=== PATIENT | male | born 1945 | race Caucasian/White ===

== ENCOUNTER → 2017-06-06 | Outpatient (CLI) | payer MEDICARE, OTHER ==
--- NOTE | 2017-06-07 10:14 | CT ---
Procedure: CT CHEST WITH IV CONTRAST Exam Date: 06/06/2017 12:00 AM APPLICATION DEFENSE MANAGER Ordering Provider: Vandana Cheung Clinical Indication: FOOD ASPIRATION Comparison: None Technique: Helically acquired axial images were obtained through the chest. Low osmolar IV contrast was given. Coronal and Sagittal reformats were obtained. This exam was performed according to our departmental dose-optimization program which includes automated exposure control, adjustment of the mA and/or kV according to patient size and/or use of iterative reconstruction technique. Findings: There is an approximately 2.6 x 1.9 cm ill-defined pulmonary nodule in the periphery of the right upper lobe. Findings are seen in a background of mild paraseptal and centrilobular emphysema. No pleural effusion or pneumothorax is present. Calcified mediastinal and left hilar lymph nodes are seen, likely a sequelae of remote wedging of metastatic disease. The heart size is normal. Partially imaged upper abdomen demonstrates a small sliding-type hiatal hernia. Gallbladder is surgically absent. Simple cysts are seen arising from the left kidney. Punctate calcifications are seen in the spleen. Visualized osseous structures demonstrate no acute abnormality. Multilevel degenerative changes are seen throughout the spine. Impression: 1. Approximately 2.6 cm somewhat spiculated appearing pulmonary nodule in the right upper lobe is suspicious for bronchogenic carcinoma. Recommend pulmonology consultation. 2. Small sliding-type hiatal hernia. 3. Mild paraseptal and centrilobular emphysema. Electronically signed by: Kylie Monzon MD 06/07/2017 10:13 AM APPLICATION DEFENSE MANAGER
== END | disposition home or self-care (01) ==
LOC: LAB.O 13:04
PROVIDERS: ATTEND Nurse Practitioner Family
DX: T17.928A Food in respiratory tract, part unspecified causing other injury, initial encounter (principal)

== ENCOUNTER → 2017-06-13 | Outpatient (CLI) | payer MEDICARE, OTHER | END | disposition home or self-care (01) | LOC: RESP 10:08 | PROVIDERS: ATTEND Nurse Practitioner Family | DX: R91.1 Solitary pulmonary nodule (principal) ==

== ENCOUNTER 2017-11-13 08:18 | Emergency (ER) | payer MEDICARE, OTHER ==
[2017-11-13 08:35] VITALS: TEMP 97.6
--- NOTE | 2017-11-13 08:42 | ED.PDOC ---
History of Present Illness - General Chief Complaint: Neuro Symptoms/Deficits Stated Complaint: R sided weakness Time Seen by Provider: 11/13/17 08:30 - History of Present Illness Initial Comments: Colton Dodd 72 y/o male stated that he felt weak on his right upper and lower extremity felt numb and has problem with holding his fork on his right hand eating yesterday but did not drop it;denies dysarthria facial weakness, difficulty but feels weak on right side when walking.Has history of right lung CA s/p lung resection and undergoing chemotherapy. No fever. ,no bowel/bladder dysfunction Timing/Duration: 24 hours, decreasing, other Severity: moderate Episode Description: see hpi Improving Factors: nothing Worsening Factors: nothing Associated Symptoms: other - see hpi Allergies/Adverse Reactions: Allergies NO KNOWN ALLERGY Allergy (Verified 11/13/17 08:26) Home Medications: Ambulatory Orders Apixaban [Eliquis] 5 mg PO DAILY 11/13/17 Fluticasone Propionate (Nasal) [Fluticasone Propionate] 50 mcg NA DAILY Folic Acid [Folic Acid] 1 mg PO DAILY 11/13/17 Ibuprofen [Advil] 200 mg PO Q6H 11/13/17 Lisinopril [Lisinopril] 40 mg PO DAILY 11/13/17 Metoprolol Succinate [Toprol Xl] 100 mg PO DAILY 11/13/17 Multiple Vitamins W/ Minerals [Vision Plus] 1 cap PO DAILY 11/13/17 Ondansetron Odt (ER Disp) [Zofran ODT (ER DISP)] 8 mg SL TID PRN 11/13/17 Pantoprazole Sodium 40 mg PO DAILY 11/13/17 Review of Systems - Review of Systems Constitutional: States: no symptoms reported EENTM: States: no symptoms reported Respiratory: States: see HPI Cardiology: States: no symptoms reported Gastrointestinal/Abdominal: States: no symptoms reported Genitourinary: States: no symptoms reported Neurological: States: see HPI Past Medical History (General) - Patient Medical History Hx Stroke: No Hx Cardiac Disorders: - Hx phlebitis-given Eliquis Hx Congestive Heart Failure: No Hx Hypertension: Yes Hx Diabetes: No Hx Gastroesophageal Reflux: Yes Hx Cancer: Yes - lung CA Surgical History: cholecystectomy, other - lung resection right - Vaccination History Hx Influenza Vaccination: Yes - 2016 Hx Pneumococcal Vaccination: Yes - 2017 - Social History Hx Tobacco Use: Yes - Quit 1997 Hx Chewing Tobacco Use: Yes - quit 20 years ago Hx Alcohol Use: No Hx Substance Use: No Hx Physical Abuse: No Hx Emotional Abuse: No - Activities of Daily Living Grooming Ability: Independent Eating (Feeding) Ability: Independent Toileting Ability: Independent Family Medical History - Family History Father Living Status: Cause of : Leukemia Hx Cardiac Disease: Yes - brother Hx Family Cancer: Yes - dad-leukemia;mom-colon Physical Exam - Physical Exam General Appearance: Alert, Comfortable Eye Exam: bilateral normal ENT Exam: normal ENT inspection, hearing grossly normal, pharynx normal Neck: non-tender, full range of motion, supple, normal inspection, trachea midline Respiratory: chest non-tender, lungs clear, normal breath sounds, no respiratory distress Cardiovascular/Chest: normal peripheral pulses, regular rate, rhythm, no murmur Peripheral Pulses: radial,right: 2+, radial,left: 2+ Gastrointestinal/Abdominal: normal bowel sounds, non tender, soft, no organomegaly Back Exam: normal inspection, no CVA tenderness, no vertebral tenderness Extremities Exam: non-tender, normal range of motion, no edema 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, 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 Exam: normal hearing, normal speech, PERRL Coordination/Gait: normal finger to nose, normal gait, negative Romberg's sign Motor/Sensory: no motor deficit, no sensory deficit, no pronator drift Skin Exam: normal color, warm/dry Progress - Progress Progress: 11/13/17 09:41 Vital Signs - 8 hr 11/13/17 08:29 Temperature 97.6 F Pulse Rate [ 64 Left Radial] Respiratory 16 Rate Blood Pressure 196/92 [Left Arm] O2 Sat by Pulse 97 Oximetry 11/13/17 12:11 Discuss all test result with patient-cbc,chemistry;head cta-no acute findings noted and recommended obs stated wants to go home and to return to ER if it recurs.Stated had problems taking pills to lower cholesterol in the past made his leg hurts but stated his cholesterol is normal.Feeling better. 11/13/17 12:17 - Results/Orders Results/Orders: 11/13/17 08:45 EKG STAT 11/13/17 Lunch Cardiac Diet Laboratory Results - last 24 hr 11/13/17 11/13/17 11/13/17 08:46 08:46 10:28 WBC 10.4 RBC 4.29 L Hgb 13.7 L Hct 39.7 L MCV 92.6 MCH 31.9 H MCHC 34.5 RDW 17.8 H Plt Count 138 MPV 8.2 Absolute Neuts (auto) 9.10 H Absolute Lymphs (auto) 0.70 L Absolute Monos (auto) 0.60 Absolute Eos (auto) 0.00 Absolute Basos (auto) 0.00 Neutrophils % 87.8 H Lymphocytes % 6.7 L Monocytes % 5.3 Eosinophils % 0.1 L Basophils % 0.1 PT 10.0 INR 1.00 PTT (SP) 22.1 Sodium 137 Potassium 4.0 Chloride 105 Carbon Dioxide 25 Anion Gap 11.0 L BUN 27 H Creatinine 1.20 BUN/Creatinine Ratio 22.5 H Random Glucose 98 Serum Osmolality 278.9 Calcium 8.5 Magnesium 1.8 Total Bilirubin 0.9 Direct Bilirubin 0.2 Indirect Bilirubin 0.7 AST 19 ALT 14 Alkaline Phosphatase 71 Creatine Kinase 32 L CK-MB (CK-2) 2.1 CK-MB (CK-2) % Not Reportable Troponin I < 0.02 Serum Total Protein 6.5 Albumin 4.0 TSH 3.72 Urine Color Yellow Urine Appearance Clear Urine pH 6.5 Ur Specific [place] 1.020 Urine Protein Negative Urine Glucose (UA) Negative Urine Ketones Negative Urine Blood Trace-intact H Urine Nitrite Negative Urine Bilirubin Negative Urine Urobilinogen 0.2 Ur Leukocyte Esterase Negative Urine RBC 0-1 Urine WBC 0 Ur Epithelial Cells 0 Urine Bacteria 0 - EKG/XRAY/CT EKG: Sinus, no ST T wave changes Comments: HR-56 XRAY: chest - no infiltrate CT Ordered: Yes - head w/contrast: no infarct /hemorrhage Stroke Information - Onset of Symptoms Symptoms of Stroke: Weakness of limb Stroke Onset of Symptoms Date: 11/12/17 - 24h Stroke Onset of Symptoms Time: 07:30 - Contraindications Antithrombotic Contraindication: Treatment not indicated t-PA Contraindication: Drug Tx Not Indicated - more than 24 hours -no acute symptoms Departure - Departure Clinical Impression: Weakness of one side of body, History of lung cancer, History of lung surgery High blood pressure Qualifiers: Hypertension type: unspecified Qualified Code(s): I10 - Essential (primary) hypertension Time of Disposition: 12:18 Disposition: Discharge to Home or Self Care Condition: Fair Departure Forms: ED Discharge - Pt. Copy, Patient Portal Self Enrollment Instructions: DI for Transient Ischemic Attack, Transient Ischemic Attack Referrals: Garcia Patel MD [Primary Care Provider] - 1-2 Weeks Home Medications: Ambulatory Orders Apixaban [Eliquis] 5 mg PO DAILY 11/13/17 Fluticasone Propionate (Nasal) [Fluticasone Propionate] 50 mcg NA DAILY Folic Acid [Folic Acid] 1 mg PO DAILY 11/13/17 Ibuprofen [Advil] 200 mg PO Q6H 11/13/17 Lisinopril [Lisinopril] 40 mg PO DAILY 11/13/17 Metoprolol Succinate [Toprol Xl] 100 mg PO DAILY 11/13/17 Multiple Vitamins W/ Minerals [Vision Plus] 1 cap PO DAILY 11/13/17 Ondansetron Odt (ER Disp) [Zofran ODT (ER DISP)] 8 mg SL TID PRN 11/13/17 Pantoprazole Sodium 40 mg PO DAILY 11/13/17 Additional Instructions: RETURN TO EMERGENCY ROOM IF SYMPTOMS RETURN NEEDED
[2017-11-13] MEDS ORDERED: amLODIPine BESYLATE 5 MG TAB PO ONE (08:44)
[2017-11-13] MEDS ORDERED: LISINOPRIL 10 MG TAB PO ONE (08:44)
--- NOTE | 2017-11-13 09:13 | RAD ---
EXAM DESCRIPTION: Chest,1 View CLINICAL HISTORY: 72 years Male, history of lung ca COMPARISON: CT chest June 06, 2017 TECHNIQUE: AP portable chest. FINDINGS: Heart size is normal with normal pulmonary vascularity. No consolidating infiltrate. Right hemidiaphragm is elevated suggesting previous partial pneumonectomy on the right. Right hilum is prominent, probably postoperative deformity. No pulmonary mass or worrisome nodule. No pneumothorax or large pleural effusion. Question small pleural effusions with slight blunting of the costophrenic angles. Bones are unremarkable. IMPRESSION: No consolidating infiltrate. Electronically signed by: Tanner Banks MD 11/13/2017 9:12 AM CDT
--- NOTE | 2017-11-13 10:17 | CT ---
EXAM DESCRIPTION: CTA Head CLINICAL HISTORY: weakness since yesterday COMPARISON: None available TECHNIQUE: Chest CTA was performed with and without IV contrast including MIP and/or Three-D reconstructed images. This exam was performed according to our departmental dose-optimization program, which includes automated exposure control, adjustment of the mA and/or kV according to patient size and/or use of iterative reconstruction technique. FINDINGS: Pre-IV contrast images show no intracranial hemorrhage. There is no midline shift or other mass effect. The ventricles and basilar cisterns are well maintained. Chronic ischemic changes are noted in the periventricular white matter. No cortical infarct is identified. The basal ganglia are unremarkable. No posterior fossa lesion. No evidence of aneurysm, major intracranial vascular occlusion or other intracranial vascular abnormality. Visualized paranasal sinuses and orbits are unremarkable. No calvarial fracture. IMPRESSION: Chronic ischemic microvascular changes, but no evidence of cortical infarct or intracranial vascular abnormality to explain patient symptoms. If symptoms persist or worsen, followup head CT in 24 hr or MRI is recommended. Electronically signed by: Norman Diaz MD 11/13/2017 10:16 AM CDT
[2017-11-13 13:02] VITALS: BP 194/106; O2SAT 98
== END 2017-11-13 12:50 | disposition home or self-care (01) ==
LOC: ER 08:18
DX: R53.1 Weakness (principal); R29.898 Other symptoms and signs involving the musculoskeletal system; C34.91 Malignant neoplasm of unspecified part of right bronchus or lung; I10 Essential (primary) hypertension; R20.0 Anesthesia of skin; K21.9 Gastro-esophageal reflux disease without esophagitis; Z98.890 Other specified postprocedural states; Z79.899 Other long term (current) drug therapy; Z92.21 Personal history of antineoplastic chemotherapy; Z87.891 Personal history of nicotine dependence

== ENCOUNTER → 2017-11-21 | Outpatient (CLI) | payer MEDICARE, OTHER ==
--- NOTE | 2017-11-21 21:25 | MRI ---
EXAM DESCRIPTION: Brain w/o Contrast: MRI. CLINICAL HISTORY: TIA COMPARISON: CTA scan of the head with IV contrast. TECHNIQUE: Multiplanar, high-field MRI unit, multiple diffusion sequences, multiple conventional sequences without contrast. FINDINGS: Multiple bilateral small foci of hyperintense FLAIR and T2-weighted signal in the periventricular white matter and pritchett-white matter junctions of the cerebral hemispheres. The larger foci are in the bilateral periventricular occipital lobes, bilateral insular/claustrum junction abutting the medial sylvian fissures, and the left frontoparietal sensorimotor junction and lanza radiata. This latter lesion is more well-defined with central low signal on FLAIR and T2-weighted images and demonstrates diffusion restriction. Minimal mass effect but no hemorrhage. The other lesions do not demonstrate diffusion restriction. These lesions extend to the vertex bilaterally and there is minimal involvement of the bilateral temporal lobes. . Other smaller lesions in the bilateral basal ganglia, more posterior and abutting the thalami, but no diffusion restriction. No hemorrhage, no cerebral edema, no mass-effect. Normal signal in the brainstem and cerebellar hemispheres. No hemorrhage, no cerebral edema, no mass-effect. Concordance of the diffusion and non-diffusion sequences with no diffusion restriction, elsewhere in the brain, except as previously described. Cortical sulci, ventricles, and other CSF spaces, and the subdural spaces are consistent with patient's age. No effacement or displacement. No midline shift. No extra-axial hemorrhage. Normal flow signal void in the major vessels of the [place], and the venous sinuses. IACs are symmetric bilaterally. Normal signal in the bilateral mastoid air cells. No mass effect in the bilateral cerebellopontine angles. Pituitary gland occupies most of the sella. Base of the cerebellar tonsils is at the level the foramen magnum. Mucoperiosteal thickening involving some of the paranasal sinus cavities. Right septal deviation.. The bony calvarium is intact. IMPRESSION: 1. Diffusion restriction focally in the lanza radiata at the left frontoparietal junction, at the level of the left ventricular body, is most likely related to recent infarction. No hemorrhage. Minimal mass effect. Central density change within the lesion can also be seen in inflammatory or neoplastic lesions. Correlate with clinical findings. 2. Diffuse bilateral white matter lesions most likely related to cerebral microvascular disease without diffusion restriction. Also in the differential are demyelinating processes, migraine headaches, vasculitis, and inflammatory process. No hemorrhage associated with these lesions. Electronically signed by: Candido Juárez MD 11/21/2017 9:24 PM CDT
--- NOTE | 2017-11-21 21:34 | US ---
EXAM DESCRIPTION: Carotid Duplex: ULTRASOUND. CLINICAL HISTORY: TIA COMPARISON: Brain MRI without contrast on the same visit. TECHNIQUE: Transcutaneous scanning utilizing pritchett-scale and Doppler modes to evaluate the bilateral carotid systems and vertebral arteries. Percentage of diameter of stenosis or no stenosis recorded will be based upon NASCET criteria. FINDINGS: Peak systolic/end diastolic (CM-Sec) CCA Right 74/11 Left 90/18. ICA Right proximal 36/9, distal 50/14. Left proximal 54/16, mid 52/15. Vertebral Right 33/8 Left 44/12. ECA (PS Only) Right 60 left 62. ICA/CCA peak systolic ratio: Right 0.7 Left 0.6 ICA/CCA end diastolic ratio: Right 1.3 Left 1.0 Vertebral arteries: antegrade flow. Comments: Bilateral atherosclerotic calcifications. No significant narrowing seen. IMPRESSION: 1. Doppler evaluation of the bilateral carotid systems and vertebral arteries shows no hemodynamically significant stenoses. 2. No significant amount of plaque seen in the carotid arteries bilaterally. Bilateral vertebral arteries showed antegrade-cephalad flow. Electronically signed by: Candido Juárez MD 11/21/2017 9:33 PM CDT
== END ==
LOC: US 13:00
PROVIDERS: ATTEND Family Medicine
DX: G45.8 Other transient cerebral ischemic attacks and related syndromes (principal)

== ENCOUNTER → 2018-04-28 | Outpatient (CLI) | payer MEDICARE, OTHER | LOC: GMAJ 11:31 | PROVIDERS: ATTEND Family Medicine | DX: Z12.5 Encounter for screening for malignant neoplasm of prostate (principal) ==

== ENCOUNTER → 2018-06-30 | Outpatient (CLI) | payer MEDICARE, OTHER ==
--- NOTE | 2018-06-30 12:23 | MRI ---
MRI right shoulder without contrast INDICATION: Shoulder pain limited range of motion TECHNIQUE: Noncontrast MR imaging right shoulder standard protocol FINDINGS: Moderate hypertrophic AC joint osteoarthrosis with subacromial enthesophyte formation. Diffuse high-grade tear throughout the distal supraspinatus articular and bursal surface effectively full-thickness anteriorly near the rotator interval coronal series 501 image 6. No pronounced retraction. Minimal infraspinatus tendinosis. Small enchondroma proximal humerus. Mild adhesive capsulitis. Diffuse degenerative labral fraying and volume loss with intraosseous and extraosseous paralabral cyst anterior inferior glenoid. Focal tear at the base the anterior labrum 3:00 position axial series 301 image 9. Tendinopathy and thinning subscapularis without rupture or retraction. No bicep rupture or dislocation. Grade 1 marbling throughout the rotator cuff muscle bellies symmetrically. IMPRESSION: Effectively full-thickness nonretracted high-grade tear distal supraspinatus anteriorly Diffuse labral degeneration/chronic labral tear with intraosseous and extraosseous para labral cyst anterior inferior glenoid Moderate hypertrophic AC joint arthrosis Minimal bursal edema Small enchondroma proximal humerus Electronically signed by: Robb Zazueta MD 06/30/2018 12:22 PM TELEPHONE SERVICE REPRESENTATIVE
== END ==
LOC: MRI 10:54
PROVIDERS: ATTEND Nurse Practitioner Family
DX: M75.101 Unspecified rotator cuff tear or rupture of right shoulder, not specified as traumatic (principal); M19.011 Primary osteoarthritis, right shoulder

== ENCOUNTER → 2018-07-13 | Outpatient (CLI) | payer MEDICARE, OTHER ==
--- NOTE | 2018-07-13 09:03 | RAD ---
EXAM DESCRIPTION: Shoulder,Right four x-ray Views CLINICAL HISTORY: SHOULDER PAIN RIGHT COMPARISON: None Available. TECHNIQUE: Four views of the right shoulder. FINDINGS: There is adequate internal and external rotation. Normal orientation on transscapular Y view and transaxillary view There is no fracture or dislocation. Moderate degenerative narrowing of the right AC joint with moderate inferiorly projecting osteophytes No focal bone lesion. IMPRESSION: Moderate degenerative AC joint arthrosis. Electronically signed by: Tanner Banks MD 07/13/2018 9:00 AM [facility]
== END ==
LOC: RAD 08:25
PROVIDERS: ATTEND Orthopaedic Surgery
DX: M25.511 Pain in right shoulder (principal); M19.011 Primary osteoarthritis, right shoulder

== ENCOUNTER → 2018-08-31 | Outpatient (CLI) | payer MEDICARE, OTHER | LOC: LAB.O 09:11 | PROVIDERS: ATTEND Orthopaedic Surgery | DX: Z01.818 Encounter for other preprocedural examination (principal) ==

== ENCOUNTER 2018-09-16 05:38 | Day surgery (SDC) | payer MEDICARE, OTHER ==
--- NOTE | 2018-09-12 14:08 | HP ---
CHIEF COMPLAINT: Right shoulder pain. HISTORY OF PRESENT ILLNESS: Colton is a 73 year-old male with a history of pain in the right shoulder. Colton has had an MRI which reveals a rotator cuff tear. Because of Colton's ongoing pain and failure of conservative measures, he has requested operative intervention for rotator cuff repair. After discussing the risks, benefits, and alternatives to that he has given informed consent for that. PAST SURGICAL HISTORY: 1. Partial lung lobectomy. CURRENT MEDICATIONS: 1. Metoprolol. 2. Amlodipine. 3. Olmesartan. 4. Atorvastatin. 5. Chlorthalidone. 6. Pantoprazole. 7. Naprosyn. 8. Fluticasone. ALLERGIES: NO KNOWN DRUG ALLERGIES. CODE STATUS: DO NOT RESUSCITATE. IMMUNIZATIONS: Up to date. FAMILY HISTORY: None pertinent to today's complaints. SOCIAL HISTORY: He does not smoke or use illicit drugs, but does drink on occasion. REVIEW OF SYSTEMS: Negative except as indicated in the History of Present Illness. PHYSICAL EXAMINATION: VITAL SIGNS: Blood pressure 142/88, pulse 65, height 5' 9", weight 226. MENTAL STATUS: The patient is awake, alert, and is able to give a good history and participate in the physical. The patient is oriented to person, place and time. SKIN: Normal tone and turgor. MUSCULOSKELETAL: He is very tender over the subacromial space but also the acromioclavicular joint. He has full forward flexion and full abduction. He has slight decreased strength in abduction and forward flexion secondary to discomfort. Division Operations Specialist strength is 5/5. Sensation is intact. He has a negative belly press maneuver. He does have some pain with internal and external rotation during forward flexion. RADIOLOGY: He does have evidence of AC joint arthritis and also evidence of rotation cuff tear on MRI. ASSESSMENT: 1. Rotator cuff syndrome. 2. Impingement. PLAN: The plan at this point is for rotator cuff repair. We may at that time perform a distal clavicle resection. We have discussed the risks, benefits, and alternatives to that and he has given informed consent for that. #[id number] [facility]
[2018-09-16] MEDS ORDERED: WATER FOR INJ 10 ML VIAL INJ ONE (07:00)
[2018-09-16] MEDS ORDERED: VECURONIUM BROMIDE 10 MG VIAL IV ONE (07:00)
[2018-09-16] MEDS ORDERED: ePHEDrine SULF 50 MG/ML ONE (07:00)
[2018-09-16] MEDS ORDERED: LIDOCAINE 1% 10 ML VIAL INJ ONE (07:00)
[2018-09-16] MEDS ORDERED: ONDANSETRON INJ 4 MG/2 ML VIAL ONE (07:00)
[2018-09-16] MEDS ORDERED: PROPOFOL 200 MG/20 ML VIAL IV ONE (07:00)
[2018-09-16] MEDS ORDERED: DEXAMETHASONE INJ 10 MG/ML VIAL ONE (07:00)
[2018-09-16] MEDS ORDERED: SODIUM CHL 0.9% 50ML MIN-BAG+ 50 ML IVPB ONE (07:20)
[2018-09-16] MEDS ORDERED: LACTATED RINGERS 1,000 ML ONE (07:20)
[2018-09-16] MEDS ORDERED: ceFAZolin SODIUM 1 GM VIAL ONE (07:20)
[2018-09-16] MEDS ORDERED: fentaNYL CITRATE INJ 50 MCG/ML AMP ONE (08:10)
[2018-09-16] MEDS ORDERED: MIDAZOLAM INJ 2 MG/2 ML VIAL ONE (08:10)
[2018-09-16] MEDS ORDERED: BUPIVACAINE 0.5% 30 ML VIAL INJ ONE (08:20)
[2018-09-16] MEDS ORDERED: SUCCINYLCHOLINE CHLORIDE 200 MG/10 ML VIAL ONE (08:21)
[2018-09-16] MEDS ORDERED: LACTATED RINGERS 1,000 ML BAG IV ONE (09:15)
[2018-09-16] MEDS: BUPIVACAINE LIPOSOME 13.3 MG/ML VIAL INJ ONE ×2 (11:20→12:00)
[2018-09-16] MEDS: VANCOMYCIN HCL INJ 1,000 MG VIAL IVPB ONE ×2 (11:20→11:39)
[2018-09-16] MEDS: BUPIVACAINE 0.5% 30 ML VIAL INJ ONE ×2 (11:20→12:00)
[2018-09-16] MEDS: ceFAZolin SODIUM 1 GM VIAL ONE ×2 (11:20→11:39)
[2018-09-16 14:03] VITALS: O2SAT 95
--- NOTE | 2018-09-17 09:06 | OP ---
DATE OF PROCEDURE: 09/16/18 PREOPERATIVE DIAGNOSIS: 1. Rotator cuff tear of right shoulder. POSTOPERATIVE DIAGNOSIS: 1. Rotator cuff tear of right shoulder. PROCEDURE: 1. Rotator cuff repair. SURGEON: Damien Eagle MD. SALES ASSOCIATE KEY HOLDER: Candido Nava CST, SA-C. ANESTHESIA: General anesthesia. COMPLICATIONS: None. FINDINGS: Tear of the rotator cuff. INDICATION: Mr. Dodd has a history of shoulder pain that has been bothering him for quite some time and has been refractory to conservative measures. Because of his ongoing pain, he has requested operative intervention. After discussing the risks, benefits and alternatives to operative intervention, the patient has given informed consent for that. PROCEDURE: The patient was brought to the Operating Room and placed in the supine position. General anesthesia was induced and the patient was transitioned into the beach chair position. The arm and shoulder were then sterilely prepped and draped. An incision was made at the lateral border of the acromion. Full thickness skin flaps were developed. Following that, the deltoid was split between the anterior and middle heads. The rotator cuff was identified after a complete bursectomy and minimal acromioplasty. The tendon edge was debrided and bony trough was made at the insertion of the supraspinatus. Once that had been achieved, two suture anchors were used to reapproximate the tendon. Following that, the arm was taken through a range of motion and the cuff was found to be stable. The wound was very thoroughly irrigated and the deltoid was reapproximated. Following reapproximation of the deltoid, the skin was closed with a combination of running and interrupted suture. Sterile dressings were placed. The patient was placed in a sling, awoken from anesthesia and taken to Recovery. POSTOPERATIVE PLAN: He will be limited with regards to range of motion until followup with us in two days. We will start physical therapy next week. [facility][id number] [facility]
[2018-09-17 12:09] VITALS: BP 118/70; TEMP 97.6
== END 2018-09-16 14:35 | disposition home or self-care (01) ==
LOC: AMB 05:38
PROVIDERS: ATTEND Orthopaedic Surgery
DX: M75.101 Unspecified rotator cuff tear or rupture of right shoulder, not specified as traumatic (principal); M75.41 Impingement syndrome of right shoulder; I10 Essential (primary) hypertension; K21.9 Gastro-esophageal reflux disease without esophagitis; Z90.2 Acquired absence of lung [part of]; Z79.899 Other long term (current) drug therapy
CPT/HCPCS: 01630; 23420; 80307; A4216; J0330; J0690; J1100; J2250; J2405; J3010; J3370; J3490; J7050; J7120

== ENCOUNTER 2019-03-29 05:11 | Day surgery (SDC) | payer MEDICARE, OTHER ==
[2019-03-29] MEDS ORDERED: LACTATED RINGERS 1,000 ML ONE (07:06)
[2019-03-29] MEDS ORDERED: MIDAZOLAM INJ 2 MG/2 ML VIAL ONE (08:03)
--- NOTE | 2019-03-29 09:28 | OP ---
DATE OF PROCEDURE: 03/29/19 PREOPERATIVE DIAGNOSIS: 1. Followup colonoscopy. POSTOPERATIVE DIAGNOSIS: 1. Polyps. PROCEDURE: 1. Colonoscopy. 2. Forceps biopsy times 3. Polyps seen in the distal ascending, distal transverse and mid descending, all small, 2 mm polyps. SURGEON: Garcia Mcarthur MD ANESTHESIA: General. COMPLICATIONS: None. ESTIMATED BLOOD LOSS: None. CONDITION: Stable. PLAN: Discharge. INDICATION: As stated. PROCEDURE: General anesthesia was induced. Digital rectal exam was normal. The scope was inserted and with minimal difficulty we got around and could see the distal cecum. I could not get far enough due to a persistent loop to get into the terminal ileum, but we got a good look at the entire cecum. Upon withdrawal, a small polyp was seen in the distal ascending colon which taken with forceps completely, no bleeding. In the transverse colon, again a small, likely hyperplastic polyp in the distal transverse colon that was taken and another one near the rectosigmoid junction. The sigmoid and rectum appeared. There were small, minimal internal hemorrhoids. The patient tolerated the procedure and taken to Recovery to be discharged. [facility][id number] [facility]
[2019-03-29 09:53] VITALS: BP 143/83; TEMP 97.2; O2SAT 100
[2019-03-29] MEDS ORDERED: PROPOFOL 200 MG/20 ML VIAL IV ONE (10:00)
[2019-03-29] MEDS ORDERED: LIDOCAINE 1% 10 ML VIAL INJ ONE (10:00)
== END 2019-03-29 09:50 | disposition home or self-care (01) ==
LOC: AMB 05:11
PROVIDERS: ATTEND Surgery
DX: D50.9 Iron deficiency anemia, unspecified (principal); K63.5 Polyp of colon; K64.8 Other hemorrhoids; J44.9 Chronic obstructive pulmonary disease, unspecified; K21.9 Gastro-esophageal reflux disease without esophagitis; I10 Essential (primary) hypertension; Z90.49 Acquired absence of other specified parts of digestive tract; Z86.73 Personal history of transient ischemic attack (TIA), and cerebral infarction without residual deficits; Z79.899 Other long term (current) drug therapy
CPT/HCPCS: 00811; 45380; 88305; J2250; J3490; J7120

== ENCOUNTER → 2019-06-11 | Outpatient (CLI) | payer MEDICARE, OTHER | LOC: GMAJ 11:12 | PROVIDERS: ATTEND Family Medicine | DX: N40.1 Benign prostatic hyperplasia with lower urinary tract symptoms (principal); I10 Essential (primary) hypertension; E78.2 Mixed hyperlipidemia ==

== ENCOUNTER → 2019-06-25 | Outpatient (CLI) | payer MEDICARE, OTHER | LOC: GMAJ 10:45 | PROVIDERS: ATTEND Family Medicine | DX: R97.20 Elevated prostate specific antigen [PSA] (principal) ==

== ENCOUNTER → 2019-10-12 | Outpatient (CLI) | payer MEDICARE, OTHER | LOC: GMAJ 11:04 | PROVIDERS: ATTEND Family Medicine | DX: R97.20 Elevated prostate specific antigen [PSA] (principal) ==

== ENCOUNTER → 2020-03-01 | Outpatient (CLI) | payer MEDICARE, OTHER | LOC: GMAJ 10:44 | PROVIDERS: ATTEND Family Medicine | DX: R97.20 Elevated prostate specific antigen [PSA] (principal); E78.2 Mixed hyperlipidemia; I10 Essential (primary) hypertension ==

== ENCOUNTER → 2020-07-13 | Outpatient (CLI) | payer MEDICARE, OTHER ==
--- NOTE | 2020-07-13 13:55 | RAD ---
EXAM DESCRIPTION: Chest,2 Views CLINICAL HISTORY: LUNG CANCER FOLLOW UP COMPARISON: Previous chest x-ray November 13, 2017 TECHNIQUE: PA/lateral FINDINGS: Right hemidiaphragm is elevated. Surgical clips in the right hilar region with previous partial pneumonectomy. Heart size is normal with normal pulmonary vascularity. No pleural effusion or pneumothorax. Lungs are clear with no consolidating infiltrate. Lateral view shows intact sternum and degenerative spurring in the mid T-spine. IMPRESSION: No acute process is identified in the chest. Electronically signed by: Tanner Banks MD 07/13/2020 1:53 PM EARLY HEAD START DIRECTOR
== END ==
LOC: RAD 09:39
PROVIDERS: ATTEND Internal Medicine Medical Oncology
DX: C34.11 Malignant neoplasm of upper lobe, right bronchus or lung (principal)